=== PATIENT | male | born 1990 | race African-American/Black ===

== ENCOUNTER 2019-06-28 11:50 | Emergency (ER) | payer OTHER ==
[~2019-06-28] VITALS: Ht 170.2 cm; Wt 93.0 kg
[2019-06-28 12:42] VITALS: BP 127/79
[2019-06-28] MEDS ORDERED: IBUPROFEN 800 MG TAB PO ONE (14:30)
== END 2019-06-28 15:07 | disposition home or self-care (01) ==
LOC: ER 11:50
DX: S83.91XA Sprain of unspecified site of right knee, initial encounter (principal); W18.39XA Other fall on same level, initial encounter; Y93.67 Activity, basketball; Y92.89 Other specified places as the place of occurrence of the external cause; Y99.8 Other external cause status
CPT/HCPCS: 73562